=== PATIENT | female | born 1970 | race Caucasian/White ===

== ENCOUNTER 2017-10-18 12:53 | Emergency (ER) | payer OTHER ==
[~2017-10-18] VITALS: Ht 144.8 cm; Wt 67.2 kg
[~2017-10-18 12:53] MED LIST: AMLO5TAB2 PO; CARB200T PO; HUMI40KI SQ; LEFL1TAB3 PO; LEXA20TA PO; PRED2.5T PO; VENTAER INH
[2017-10-18 12:59] VITALS: BP 146/95; PULSE 84; RESP 18; TEMP 98.4; O2SAT 98
[2017-10-18] MEDS ORDERED: TRAZ1TAB14 PO (13:11)
[2017-10-18] MEDS ORDERED: OMEP40CA2 PO (13:11)
[2017-10-18] MEDS ORDERED: LAMO100T PO (13:11)
[2017-10-18] MEDS ORDERED: BUSP10TA PO ×2 (13:12→13:13)
[2017-10-18] MEDS ORDERED: RISP1TAB2 PO (13:12)
--- NOTE | 2017-10-18 13:12 | PD ---
HPI . Chest pain Chief Complaint: Chest Pain Time Seen by Provider: 13:05 Travel History International Travel<30 days: No Contact w/Intl Traveler<30days: No Traveled to known affect area: No History of Present Illness HPI Patient presents with right-sided chest pain for the last 6 days. Pain is exacerbated by coughing and breathing. She reports a nonproductive cough. She denies fever. She states that the pain is rated 4/10. Pain has been unrelieved by Tylenol and aspirin. Patient reports a history of asthma. PFSH Past Medical History Asthma: Yes Anxiety: Yes Depression: Yes Diminished Hearing: No Respiratory: Yes (Asthma) Immunizations Current: Yes ?: Not Past Surgical History Gynecologic Surgery: Yes (PARTIAL HYSTO 2008) Hysterectomy: Yes (PARTIAL 2008 lso rso) Social History Alcohol Use: No Tobacco Use: Yes (1 pk) Substance Use: No Allergies-Medications (Allergen,Severity, Reaction): Coded Allergies: clindamycin (Unverified Allergy, Mild, rash, 08/19/17) oxycodone (Unverified Adverse Reaction, Mild, withdrawel symptoms, 08/19/17 ) recovering from addiction Reported Meds & Prescriptions Reported Meds & Active Scripts Active Reported Alendronate (Alendronate Sodium) 70 Mg Tab 70 Mg PO Q7D Lovastatin 20 Mg Tab 20 Mg PO DAILY Buspirone (Buspirone HCl) 10 Mg Tab 10 Mg PO TID Risperidone 1 Mg Tab 1 Mg PO DAILY Buspirone (Buspirone HCl) 10 Mg Tab 10 Mg PO TID Lamotrigine 100 Mg Tab 100 Mg PO BID Omeprazole 40 Mg Cap 40 Mg PO DAILY Trazodone (Trazodone HCl) 150 Mg Tablet 150 Mg PO HS Humira 2-Pack Inj (Adalimumab 2-Pack Inj) 40 Mg/0.8 Ml Syr 40 Mg SQ Q7D Prednisone 2.5 Mg Tab 2.5 Mg PO DAILY Leflunomide 20 Mg Tab 20 Mg PO DAILY Ventolin Hfa 18 GM Inh (Albuterol Sulfate) 90 Mcg/Act Aer 2 Puff INH Q4-6H PRN Amlodipine (Amlodipine Besylate) 5 Mg Tab 5 Mg PO DAILY Review of Systems Except as stated in HPI: all other systems reviewed are Neg General / Constitutional: No: Fever, Chills Cardiovascular: Positive: Chest Pain or Discomfort Respiratory: Positive: Cough, Wheezing, No: Shortness of Breath Physical Exam Narrative GENERAL: Healthy-appearing woman in no acute distress. SKIN: warm/dry. HEAD: Normocephalic. Atraumatic. EYES: Pupils equal and round. No scleral icterus. No injection or drainage. ENT: No nasal bleeding or discharge. Mucous membranes pink and moist. NECK: Trachea midline. Full range of motion without pain.. CARDIOVASCULAR: Regular rate and rhythm. Heart sounds are normal. RESPIRATORY: No accessory muscle use. Diffuse expiratory wheezing. Breath sounds equal bilaterally. Right-sided chest wall tenderness. GASTROINTESTINAL: Abdomen soft. Nontender. Bowel sounds present. Nondistended. : MUSCULOSKELETAL: No obvious deformities. NEUROLOGICAL: Awake and alert. No obvious cranial nerve deficits. Motor grossly within normal limits. Normal speech. PSYCHIATRIC: Appropriate mood and affect; insight and judgment normal. Data Data Last Documented VS Vital Signs Date Time Temp Pulse Resp B/P (MAP) Pulse Ox O2 Delivery O2 Flow Rate FiO2 10/18/17 14:54 79 16 129/60 (83) 96 Room Air 10/18/17 12:59 98.4 Orders Orders Electrocardiogram (10/18/17 13:09) Basic Metabolic Panel (Bmp) (10/18/17 13:09) Complete Blood Count With Diff (10/18/17 13:09) Troponin I (10/18/17 13:09) Chest, Single Ap (10/18/17 13:09) Ecg Monitoring (10/18/17 13:09) Iv Access Insert/Monitor (10/18/17 13:09) Oximetry (10/18/17 13:09) Aspirin Chew (Aspirin Chew) (10/18/17 13:15) Sodium Chloride 0.9% Flush (Ns Flush) (10/18/17 13:15) Albuterol-Ipratropium Neb (Duoneb Neb) (10/18/17 13:15) Labs Laboratory Tests Test 10/18/17 13:51 White Blood Count 12.3 TH/MM3 Red Blood Count 4.42 MIL/MM3 Hemoglobin 13.9 GM/DL Hematocrit 41.1 % Mean Corpuscular Volume 93.0 FL Mean Corpuscular Hemoglobin 31.5 PG Mean Corpuscular Hemoglobin Concent 33.9 % Red Cell Distribution Width 13.1 % Platelet Count 197 TH/MM3 Mean Platelet Volume 8.6 FL Neutrophils (%) (Auto) 84.3 % Lymphocytes (%) (Auto) 8.2 % Monocytes (%) (Auto) 3.6 % Eosinophils (%) (Auto) 0.3 % Basophils (%) (Auto) 3.6 % Neutrophils # (Auto) 10.5 TH/MM3 Lymphocytes # (Auto) 1.0 TH/MM3 Monocytes # (Auto) 0.4 TH/MM3 Eosinophils # (Auto) 0.0 TH/MM3 Basophils # (Auto) 0.4 TH/MM3 CBC Comment DIFF FINAL Differential Comment Blood Urea Nitrogen 15 MG/DL Creatinine 1.10 MG/DL Random Glucose 147 MG/DL Calcium Level 8.3 MG/DL Sodium Level 141 MEQ/L Potassium Level 4.1 MEQ/L Chloride Level 108 MEQ/L Carbon Dioxide Level 25.7 MEQ/L Anion Gap 7 MEQ/L Estimat Glomerular Filtration Rate 54 ML/MIN Troponin I LESS THAN 0.02 NG/ML MDM Medical Decision Making Medical Screen Exam Complete: Yes Emergency Medical Condition: Yes Interpretation(s) EKG shows a sinus rhythm with no ST segment elevation or depression. Differential Diagnosis Differential diagnosis of chest pain includes but is not limited to musculoskeletal pain, pulmonary embolism, acute coronary syndrome, pneumonia, pleurisy Narrative Course Patient presents with right-sided chest pain. It is most likely chest wall pain. CBC & BMP Diagram 10/18/17 13:51 Calcium Level 8.3 L trop < 0.02 Last Impressions Chest X-Ray 10/18/17 1309 Signed Impressions: Service Date/Time: Wednesday, October 18, 2017 13:31 - CONCLUSION: No acute cardiopulmonary process. Santana Valdez MD No significant etiology for chest pain has been found. Her symptoms are most compatible with chest wall pain. She'll be discharged to home. Diagnosis Primary Impression: Chest wall pain Patient Instructions: Chest Wall Pain (ED), General Instructions Med/Other Pt SpecificInfo: Prescription(s) given Scripts Tramadol (Ultram) 50 Mg Tab 50 MG PO Q4H Y for PAIN, #12 TAB 0 Refills Prov: Ashley Ross MD 10/18/17 Disposition: 01 DISCHARGE HOME Condition: Stable Ashley Ross MD Oct 18, 2017 13:12
[2017-10-18] MEDS ORDERED: LOVA20TA PO (13:13)
[2017-10-18] MEDS ORDERED: ALEN1TAB48 PO (13:14)
[2017-10-18 13:15] VITALS: O2SAT 98
[2017-10-18] MEDS ORDERED: RESP: ALBUTEROL 2.5 MG/IPRATROPIUM 0.5 MG NEB (SCH) INH ONE (13:15)
[2017-10-18] MEDS ORDERED: SODIUM CHLORIDE 0.9% FLUSH 10 ML FLUSH IVF PRN (13:15)
[2017-10-18] MEDS ORDERED: ASPIRIN 81 MG CHEW TAB PO ONE (13:15)
--- NOTE | 2017-10-18 13:49 | RADRPT ---
EXAM DATE/TIME: 10/18/2017 13:31 [facility] COMPARISON: No previous studies available for comparison. INDICATIONS : Short of breath MEDICAL HISTORY : Hypertension. Asthma, Smoker SURGICAL HISTORY : None. ENCOUNTER: Initial ACUITY: 1 day PAIN SCORE: 0/10 LOCATION: Bilateral chest FINDINGS: A single view of the chest demonstrates the lungs to be symmetrically aerated without evidence of mas s, infiltrate or effusion. The cardiomediastinal contours are unremarkable. Osseous structures are intact. CONCLUSION: No acute cardiopulmonary process. Santana Valdez MD on October 18, 2017 at 13:47 Board Certified Radiologist. This report was verified electronically.
[2017-10-18 14:07] LABS: AUTOMATED NEUTROPHIL # 10.5 TH/MM3 (1.8-7.7); BASOPHIL # 0.4 TH/MM3 (0-0.2); BASOPHIL % 3.6 % (0.0-2.0); EOSINOPHIL % 0.3 % (0.0-4.0); HEMATOCRIT 41.1 % (35.0-46.0); LYMPH % 8.2 % (9.0-44.0); MEAN CORPUSCULAR HEMOGLOBIN 31.5 PG (27.0-34.0); MEAN CORPUSCULAR HGB CONC 33.9 % (32.0-36.0); MONO % 3.6 % (0.0-8.0); NEUT % 84.3 % (16.0-70.0); PLATELET COUNT 197 TH/MM3 (150-450); RED BLOOD COUNT 4.42 MIL/MM3 (4.00-5.30); RED CELL DISTRIBUTION WIDTH 13.1 % (11.6-17.2); WHITE BLOOD COUNT 12.3 TH/MM3 (4.0-11.0)
[2017-10-18 14:10] LABS: CHLORIDE 108 MEQ/L (98-107); SODIUM (NA) 141 MEQ/L (136-145)
[2017-10-18 14:11] LABS: HEMO FLAGS DIFF FINAL
[2017-10-18 14:13] LABS: ANION GAP 7 MEQ/L (5-15); BICARBONATE 25.7 MEQ/L (21.0-32.0); BLOOD UREA NITROGEN 15 MG/DL (7-18)
[2017-10-18 14:17] LABS: GLOMERULAR FILTRATION RATE 54 ML/MIN (>89)
[2017-10-18 14:48] LABS: POTASSIUM 4.1 MEQ/L (3.5-5.1)
[2017-10-18 14:54] VITALS: BP 129/60; PULSE 79; RESP 16; O2SAT 96
[2017-10-18] MEDS ORDERED: TRAM50 PO (15:22)
--- NOTE | 2017-10-19 14:23 | EKG ---
Date Performed: 10/18/2017 Time Performed: 13:15:55 PTAGE: 47 years EKG: Sinus rhythm NORMAL ECG NO PREVIOUS TRACING DOCTOR: Radha Cui Interpretating Date/Time 10/19/2017 14:21:26
== END 2017-10-18 15:36 | disposition home or self-care (01) ==
LOC: PHED 12:53
DX: R07.89 Other chest pain (principal); J45.909 Unspecified asthma, uncomplicated; F17.200 Nicotine dependence, unspecified, uncomplicated
CPT/HCPCS: 71010; 80048; 84484; 85025; 93005; 94664; 99285

== ENCOUNTER 2017-10-27 05:20 | Emergency (ER) | payer OTHER ==
[~2017-10-27] VITALS: Ht 144.8 cm; Wt 68.3 kg
[~2017-10-27 05:20] MED LIST changes: +ALEN1TAB48 PO; +BUSP10TA PO; -CARB200T PO; +LAMO100T PO; -LEXA20TA PO; +LOVA20TA PO; +OMEP40CA2 PO; +RISP1TAB2 PO; +TRAM50 PO; +TRAZ1TAB14 PO
[2017-10-27 05:28] VITALS: BP 172/79; PULSE 84; RESP 22; TEMP 97.3; O2SAT 99
--- NOTE | 2017-10-27 05:45 | PD ---
HPI Chief Complaint: Flank/Kidney Pain Time Seen by Provider: 05:31 Travel History International Travel<30 days: No Contact w/Intl Traveler<30days: No History of Present Illness HPI Patient is a 47-year-old female recovering IV drug abuser presents emergency Department with atraumatic right-sided chest wall pain. She states the pain is been going on for a little more than 2 weeks now, one presentation to the emergency department for same. She states before she felt like it was in her chest but now feels like it's on the chest wall. She states it hurts her worse when she takes deep breath or coughs. She states that she has not had any cough to me but prior documentation from first encounter shows that she did endorse a nonproductive cough. States the pain is still there she was prescribed tramadol and does not want to take it because she noticed addictive. She states the pain is moderate, right flank, context as above, constant over the past 2 weeks. No nausea no vomiting no constipation or diarrhea no dysuria no vaginal bleeding or vaginal discharge. PFSH Past Medical History Asthma: Yes Anxiety: Yes Depression: Yes Diminished Hearing: No Respiratory: Yes (Asthma) Immunizations Current: Yes Past Surgical History Gynecologic Surgery: Yes (PARTIAL HYSTO 2008) Hysterectomy: Yes (PARTIAL 2008 lso rso) Social History Alcohol Use: No Tobacco Use: Yes (1 pk) Substance Use: No Allergies-Medications (Allergen,Severity, Reaction): Coded Allergies: clindamycin (Unverified Allergy, Mild, rash, 10/27/17) oxycodone (Unverified Adverse Reaction, Mild, withdrawel symptoms, ) recovering from addiction Reported Meds & Prescriptions Reported Meds & Active Scripts Active Reported Albuterol Neb (Albuterol Sulfate) 0.63 Mg/3 Ml Neb 0.63 Mg NEB Q4HR NEB PRN Proair Hfa 8.5 GM Inh (Albuterol Sulfate) 90 Mcg/Act Aer 1 Puff INH Q4H PRN 108 mcg/actuation Leflunomide 10 Mg Tab 10 Mg PO DAILY Omeprazole 40 Mg Cap 40 Mg PO DAILY Lamotrigine 200 Mg Tab 200 Mg PO HS Alendronate (Alendronate Sodium) 70 Mg Tab 70 Mg PO Q7D Lovastatin 20 Mg Tab 20 Mg PO DAILY Buspirone (Buspirone HCl) 10 Mg Tab 10 Mg PO TID Risperidone 1 Mg Tab 1 Mg PO DAILY Lamotrigine 100 Mg Tab 100 Mg PO DAILY Trazodone (Trazodone HCl) 150 Mg Tablet 150 Mg PO HS Humira 2-Pack Inj (Adalimumab 2-Pack Inj) 40 Mg/0.8 Ml Syr 40 Mg SQ Q14D Prednisone 2.5 Mg Tab 5 Mg PO DAILY Amlodipine (Amlodipine Besylate) 5 Mg Tab 5 Mg PO BID Review of Systems Except as stated in HPI: all other systems reviewed are Neg Physical Exam Narrative GENERAL: Well-nourished, well-developed patient. SKIN: Focused skin assessment warm/dry. No rash on the chest abdomen. No rash and extremities. HEAD: Normocephalic. EYES: No scleral icterus. No injection or drainage. NECK: Supple, trachea midline. No JVD or lymphadenopathy. CARDIOVASCULAR: Regular rate and rhythm without murmurs, gallops, or rubs. RESPIRATORY: Breath sounds equal bilaterally. No accessory muscle use. GASTROINTESTINAL: Abdomen soft, non-tender, nondistended. MUSCULOSKELETAL: No cyanosis, or edema. No midline CT or L-spine tenderness, there is some tenderness to the right ribs in the anterior axillary line. No rash no bruising seen, no crepitance. BACK: Nontender without obvious deformity. No CVA tenderness. Data Data Last Documented VS Vital Signs Date Time Temp Pulse Resp B/P (MAP) Pulse Ox O2 Delivery O2 Flow Rate FiO2 10/27/17 06:55 10/27/17 06:45 66 18 99 Room Air 10/27/17 05:28 97.3 Orders Orders Urinalysis - C+S If Indicated (10/27/17 05:30) Ed Urine Pregnancytest Poc (10/27/17 05:30) Ketorolac Inj (Toradol Inj) (10/27/17 06:00) Ribs, Uni (W/O Exp Cxr) (10/27/17 ) Ed Discharge Order (10/27/17 06:47) Labs Laboratory Tests Test 10/27/17 06:00 Urine Collection Type CLEAN CATCH Urine Color YELLOW Urine Turbidity CLEAR Urine pH 6.0 Urine Specific Advance 1.015 Urine Protein NEG mg/dL Urine Glucose (UA) NEG mg/dL Urine Ketones NEG mg/dL Urine Occult Blood MOD Urine Nitrite NEG Urine Bilirubin NEG Urine Leukocyte Esterase NEG Urine RBC 0-3 /hpf Urine Squamous Epithelial Cells 0-5 /hpf Microscopic Urinalysis Comment CULT NOT INDICATED MDM Medical Decision Making Medical Screen Exam Complete: Yes Emergency Medical Condition: Yes Differential Diagnosis Kidney stone seems highly unlikely Chest wall pain, rib contusion, rib fracture. Kidney stone seems highly unlikely. Narrative Course Patient roomed in emergency department, signs symptoms highly consistent with rib contusion versus rib fracture, rib series obtained shows no acute fracture, she has pain to superficial palpation, no CVA tenderness. She did have hematuria and strep but on microscopic had no hematuria. Think is so unlikely that she has a kidney stone and I did not recommend any additional workup at this time. She did have blood work recently showing normal kidney function. I discussed symptomatic management home and follow-up with primary care physician or return to ED criteria. She is stable for discharge at this time. As needed and discussion of the above the patient was sitting upright in a stretcher crosslegged eating a sandwich. Diagnosis Primary Impression: Right-sided chest wall pain Additional Impression: Hematuria Patient Instructions: Chest Wall Pain (ED), General Instructions Disposition: 01 DISCHARGE HOME Condition: Stable Eamon Zelaya MD Oct 27, 2017 05:45
[2017-10-27] MEDS ORDERED: LAMO200T PO (05:57)
[2017-10-27] MEDS ORDERED: OMEP40CA2 PO (05:59)
[2017-10-27] MEDS ORDERED: ALBUAER3 INH (06:00)
[2017-10-27] MEDS ORDERED: LEFL20TA11 PO (06:00)
[2017-10-27] MEDS ORDERED: KETOROLAC TROMETHAMINE 60 MG/2 ML (IM) VIAL IM ONE (06:00)
[2017-10-27] MEDS ORDERED: ALBU0.63 NEB (06:01)
[2017-10-27 06:28] LABS: BLOOD, URINE MOD (NEG); GLUCOSE,URINE NEG (NEG); KETONE, URINE NEG (NEG); NITRITE,URINE NEG (NEG)
[2017-10-27 06:45] VITALS: BP 176/83; PULSE 66; RESP 18; O2SAT 99
[2017-10-27 06:45] LABS: METHOD OF COLLECTION CLEAN CATCH; URINE COLOR YELLOW (YELLW/STRAW)
[2017-10-27 06:46] LABS: COMMENT (UR) CULT NOT INDICATED; CULTURE IF INDICATED CULT NOT INDICATED; RBC, URINE 0-3 /hpf (0-3); SQUAMOUS EPITHELIAL CELL URINE 0-5 /hpf (0-5)
--- NOTE | 2017-10-27 06:54 | RADRPT ---
EXAM DATE/TIME: 10/27/2017 06:28 [facility] COMPARISON: CHEST SINGLE AP, October 18, 2017, 13:31. INDICATIONS : Right side rib pain from unknown injury. MEDICAL HISTORY : None. SURGICAL HISTORY : None. ENCOUNTER: Initial ACUITY: 1 day PAIN SCORE: 7/10 LOCATION: Right anterior lower ribs. FINDINGS: Multiple views of the right ribs were performed. There is no evidence of displaced fracture. No de structive lesions or areas of periosteal thickening are seen. There suggestion for mild peripheral infiltrate in the right mid lung. CONCLUSION: 1. No perceptible rib fracture. 2. However, questionable early or mild pneumonia laterally in the right mid lung. Stevan Calderon MD on October 27, 2017 at 6:51 Board Certified Radiologist. This report was verified electronically.
== END 2017-10-27 06:58 | disposition home or self-care (01) ==
LOC: PHED 05:20
DX: R07.89 Other chest pain (principal); R31.9 Hematuria, unspecified; F17.200 Nicotine dependence, unspecified, uncomplicated
CPT/HCPCS: 71100; 81001; 84703; 96372; 99284; J1885